=== PATIENT | male | born 1955 | race Caucasian/White ===

== ENCOUNTER → 2017-07-24 | Outpatient (CLI) | payer OTHER ==
[~2017-07-24] MED LIST: OPTIRAY 320 IV PRN
--- NOTE | 2017-07-24 16:55 | DIAGNOSTIC IMAGING REPORT ---
ADDENDUM ADDENDUM: The case was reviewed with Dr. 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 There is a probable filling defect identified in the distal ileum just proximal to the ileocecal valve on image #344. This measures 1.6 cm in length and likely corresponds to the reported lesion. Just superior to this loop of bowel there is a 1.3 cm irregular density in the mesentery seen on image #329. This may represent a small peritoneal implant or extraluminal extension. The initial report there is mention of a 9 mm hepatic hypodensity. This is located in the right lobe and likely represents a cyst or small hemangioma. If further characterization is required MRI would be definitive. Electronically signed by: Mika Erickson M.D. 07/24/2017 6:05 PM Dictated Date/Time: 07/24/2017 5:[address] SCAN OF THE CHEST, ABDOMEN, AND PELVIS WITH IV CONTRAST CLINICAL HISTORY: Neoplasm of the digestive tract. COMPARISON STUDY: Chest x-ray dated 10/21/2013. TECHNIQUE: Following the IV administration of 117 of Optiray 320, CT scan of the chest, abdomen, and pelvis was performed from the thoracic inlet to the proximal femora. Images are reviewed in the axial, sagittal, and coronal planes. IV contrast was administered without complication. Automated dose control exposure was utilized. A dose lowering technique was utilized adhering to the principles of ALARA. CT DOSE: 484.60 mGy.cm FINDINGS: CHEST: Thyroid: Imaged portions of the thyroid gland are normal in size and attenuation. A 7 mm low-attenuation nodule is noted in the left lobe. Thoracic aorta: There is mild ectasia of the ascending thoracic aorta which measures up to 3.7 cm in diameter. The remainder of the thoracic ureter is normal in caliber, and the arch demonstrates 4-vessel variant anatomy. No dissection is seen. Pulmonary vasculature: The pulmonary trunk is normal in caliber. There are no filling defects identified in the central pulmonary vessels to indicate pulmonary embolus. Note that this examination was not protocoled for evaluation of the pulmonary arteries. Heart: The heart is normal in size and configuration, and without pericardial effusion. Lungs and pleural spaces: There is a small fat-containing Bochdalek hernia at the right lung base. The lungs and pleural spaces are clear. The trachea and central airways are patent. Mediastinum: There is no mediastinal lymphadenopathy. Elayne: Clear. Axillae: There is no axillary lymphadenopathy. Bony thorax: No lytic or blastic lesions are identified. ABDOMEN AND PELVIS: Liver: The contrast-enhanced liver is normal in size, contour, and attenuation. There is no intrahepatic or ductal dilatation. The hepatic veins and portal veins are patent. A 9 mm hypodensity in the left lobe seen on image #32 likely represents a cyst but is too small for definitive characterization. Gallbladder: Unremarkable. Spleen: Normal in size and attenuation. Pancreas: Unremarkable. Adrenal glands: Unremarkable. Kidneys: The contrast enhanced kidneys are normal in size and without hydronephrosis. The kidneys enhance symmetrically. There are numerous parapelvic cysts on the left. Abdominal vasculature: The abdominal aorta is normal in course and caliber. Bowel: No bowel obstruction is identified. The appendix is normal as visualized. Peritoneum: There is no intraperitoneal free air or abdominal ascites. There is a small fat-containing umbilical hernia. Lymphadenopathy: None. Pelvic viscera: There is median lobe hypertrophy of the prostate gland. The bladder and seminal vesicles are normal as visualized. Skeletal structures: No lytic or blastic lesions are seen. IMPRESSION: 1. There is no evidence of metastatic disease in the chest, abdomen, or pelvis. 2. The lungs are clear. 3. No acute infectious or inflammatory findings are seen in the abdomen or pelvis. 4. A subcentimeter hepatic hypodensity likely represents a cyst but is too small for definitive characterization. Electronically signed by: Mika Erickson M.D. 07/24/2017 4:54 PM Dictated Date/Time: 07/24/2017 4:42 PM
== END | disposition home or self-care (01) ==
LOC: C.CTS 15:42
PROVIDERS: ATTEND Internal Medicine Gastroenterology
DX: D49.0 Neoplasm of unspecified behavior of digestive system (principal); K56.690 Other partial intestinal obstruction